=== PATIENT | female | born 1970 | race African-American/Black ===

== ENCOUNTER 2019-02-15 14:56 | Emergency (ER) | payer SELFPAY ==
--- NOTE | 2019-02-15 18:10 | ULT ---
EXAM: Transabdominal and transvaginal pelvic ultrasound PROVIDED CLINICAL HISTORY: Abnormal vaginal bleeding COMPARISON: None FINDINGS: The uterus measures about 18.6 x 9.7 x 12 cm. There is a circumscribed masslike area altered echogeni city at the posterior aspects of the uterine fundus, probably myometrial in location. There is a definitely myometrial focus of similarly diminished echogenicity within the lower uterine segment radha suring about 5.4 cm. The ovaries are not visualized. There is no evidence for significant free pelvic fluid. IMPRESSION: Prominently enlarged uterus with multiple hypoechoic masses likely reflecting fibroids. Nonvisualizat ion of the ovaries.
== END 2019-02-15 19:20 | disposition home or self-care (01) ==
LOC: ERS 14:56
DX: N92.0 Excessive and frequent menstruation with regular cycle (principal); D64.9 Anemia, unspecified; D25.9 Leiomyoma of uterus, unspecified
CPT/HCPCS: 76856

== ENCOUNTER 2019-07-18 12:07 | Emergency (ER) | payer SELFPAY ==
--- NOTE | 2019-07-18 13:45 | CT ---
CT NECK SOFT TISSUE WITH CONTRAST: HISTORY: Throat swelling. Allergic reaction. COMPARISON: None. CORRELATION: None. FINDINGS: Brain parenchyma: No pathologic enhancement of the visualized brain parenchyma. Sinuses: Mild mucosal thickening of the right maxillary sinus. Nasopharynx: Adequate aeration. No mucosal abnormality. Oral cavity: Aerodigestive tract is patent. No mucosal abnormality. Limited evaluation of the oral ca vity due to dental amalgam artifact. Midline fatty raphae of the tongue is preserved. Hypopharynx: No mucosal abnormality. Larynx: There is mucosal thickening and edema involving the epiglottis, supraglottic, glottic and sub glottic larynx. There is also evidence of retropharyngeal/prevertebral fluid starting at C3, extending inferiorly to the C7 level. At the C4-C5 disc space, this collection measures 2.1 x 0.7 cm. Fluid does not appear to extend into the anterior mediastinum. Paraspinal muscles: Symmetric attenuation of the paraspinal muscles and symmetric attenuation of the sternocleidomastoid muscles. Parotid and salivary glands: Symmetric attenuation of the parotid and submandibular glands. Thyroid gland: Unremarkable. Spine: Multilevel degenerative changes of the cervical spine with loss of disc space height and osteo phyte formation at C4-C5, C5-C6 and C6-C7. Lymph nodes: Mildly prominent right level II lymph node measuring 1.3 x 0.8 cm. Upper normal left lev el II lymph node measuring 0.9 x 0.7 cm. Lung apices and upper mediastinum: No acute abnormality. IMPRESSION: Edematous change involving the supraglottic, glottic and subglottic larynx. There is evidence of retr opharyngeal/prevertebral fluid. Findings are presumed to be reactive. Infectious or inflammatory process cannot be excluded. Continued surveillance and clinical correlation is recommended. Transcribed Date/Time: 07/18/2019 1:49 PM
[2019-07-18] MEDS ORDERED: Iopamidol-370 76% 500 ML 1 ML ONE (13:46)
[2019-07-18] MEDS ORDERED: Ketorolac Tromethamine 30 MG/ML VIAL ONE (14:10)
[2019-07-18] MEDS ORDERED: Dexamethasone 10 MG/ML VIAL ONE (14:10)
[2019-07-18] MEDS ORDERED: Lidocaine 4% Topical Sol 50 ML BOT ONE (15:09)
--- NOTE | 2019-07-20 03:14 | CON ---
DATE OF CONSULTATION: CHIEF COMPLAINT: Shortness of breath and neck swelling. HISTORY OF PRESENT ILLNESS: Female patient, 48 years of age, presenting with new onset swelling of the neck and change in voice and hoarseness and shortness of breath, presenting to an outside emergency room after potentially having an allergic reaction to food; however, the patient does not know if there are any new foods or exposures that could be contributing to this swelling in the throat or shortness of breath. The patient was transferred to [facility] Emergency room and evaluated by Dr. Ortiz, and CT scan was obtained showing some cervical lymphadenopathy as well as some soft tissue swelling in the airway, representing some concern and myself, Dr. Silvano Tran was consulted for evaluation and for flexible laryngoscopy and evaluation of airway. PAST MEDICAL HISTORY: Please see electronic medical record. PAST SURGICAL HISTORY: No head or neck surgeries. CURRENT MEDICATIONS: The patient received dexamethasone as well as ceftriaxone at the outside hospital as well as Benadryl and is currently feeling some improvement. ALLERGIES: NO KNOWN DRUG ALLERGIES. SOCIAL HISTORY: Noncontributory. FAMILY HISTORY: Noncontributory. REVIEW OF SYSTEMS: SKIN: Negative. EYES: Negative. EARS, NOSE, AND THROAT: Please see HPI, otherwise negative. RESPIRATORY: Shortness of breath. CARDIOVASCULAR: Negative. GASTROINTESTINAL: Negative. MUSCULOSKELETAL: Negative. NEUROLOGIC: Negative. HEMATOLOGIC, LYMPHATIC, AND IMMUNOLOGIC: Negative. ENDOCRINE: Negative. OBJECTIVE: VITAL SIGNS: Stable. PHYSICAL EXAMINATION: GENERAL: Normocephalic, atraumatic. No acute distress. Alert and oriented x3. HEAD AND FACE: No significant facial swelling. No facial lesions or masses. No maxillary tenderness, frontal tenderness, or parotid gland masses or lesions. No submandibular gland masses or tenderness. EYES: Extraocular movements are intact. Pupils are equally round and reactive to light. No nystagmus on lateral gaze. EARS: Right and left pinnae are normal. EACs are clear. Tympanic membranes are intact with normal landmarks. No evidence of effusion or infection. TMs are mobile to autoinsufflation. NOSE: External nose is normal. Nasal mucosa is healthy. Turbinates are healthy. No masses or lesions. ORAL CAVITY: Lips, teeth, and gums are normal. Oral mucosa is moist without masses or lesions. Tongue and floor of mouth are without swelling or masses. Palate and uvula appear to be normal and without swelling or erythema. Tonsils do not show signs of infection. No erythema or swelling. NASOPHARYNX, HYPOPHARYNX, AND LARYNX FLEXIBLE LARYNGOSCOPY: The nasopharynx is clear. No lesions or masses. There is mild edema of the lateral pharyngeal wall and some to the arytenoids; however, the true vocal folds are normal and appear to be mobile and abduct bilaterally with patent airway. Epiglottis is normal. No signs of infection. Base of tongue is normal without swelling. NECK: No palpable cervical lymphadenopathy. Trachea is midline. Thyroid is within normal size without apparent nodules. NEUROLOGIC: Cranial nerves 2 through 12 are grossly intact. Mood and affect are normal. ASSESSMENT AND PLAN: A 48-year-old female patient with recent and sudden onset of shortness of breath and neck swelling and fullness in the throat and difficulty swallowing. As the patient presented to an outside hospital, she was given steroid dose as well as parenteral antibiotics and Benadryl. After medications, the patient is feeling some improvement. She does feel that there was some significant full feeling in her throat; however, her shortness of breath has abated. Given the flexible laryngoscopy and the CT scan results showing some cervical lymphadenopathy and we cannot currently rule out infection even though white blood cell count is low, currently at 8 and patient is afebrile, there is some cervical lymphadenopathy, which could be a mild upper respiratory tract infection or infection as well. The patient also could have some allergic-type swelling or angioedema and it is not clear at this point; however, since there is some soft tissue swelling, we would recommend a burst and weight-based dose of prednisone as well as Augmentin to avoid rebound swelling or shortness of breath when the patient is discharged from the emergency room. Recommend followup as an outpatient in clinic and evaluation of the airway with flexible laryngoscopy to make sure that all swelling has abated and resolved. The patient was carefully instructed to return to the emergency room with any increasing difficulty with swallowing, increasing pain of the throat or shortness of breath or changes of voice of any kind, so that an airway evaluation could be completed at the soonest possible opportunity. Job ID: [id number]
== END 2019-07-18 15:55 | disposition home or self-care (01) ==
LOC: ERS 12:07
DX: J38.4 Edema of larynx (principal); E78.5 Hyperlipidemia, unspecified; E78.00 Pure hypercholesterolemia, unspecified; I10 Essential (primary) hypertension; D64.9 Anemia, unspecified; J45.909 Unspecified asthma, uncomplicated; Z79.899 Other long term (current) drug therapy; Z79.51 Long term (current) use of inhaled steroids
CPT/HCPCS: 70491; 96361; 96374; J1100; J1885; Q9967